=== PATIENT | male | born 1960 | race Caucasian/White ===

== ENCOUNTER 2022-03-13 04:18 | Emergency (ER) | payer BC, SELFPAY ==
--- NOTE | 2022-03-13 04:23 | ECG_ITS ---
APPROVED REPORT Exam: Resting ECG HR:51 bpm ECG Measurements Heart Rate 51 AXES MD 170 P 14 QRSd 80 QRS 78 QT 434 T 73 QTc 411 Conclusion SINUS BRADYCARDIA BORDERLINE ECG UNCONFIRMED REPORT Electronically signed by : Jose De Jesus Alvarado MD 03/14/2022 18:42:50
[2022-03-13 04:24] VITALS: BMI 29.1
[2022-03-13 04:27] VITALS: BP 172/93; PULSE 65; RESP 16; TEMP 36.6; O2SAT 99; BMI 29.1
--- NOTE | 2022-03-13 04:27 | XR_ITS ---
PROCEDURE INFORMATION: Exam: XR Chest Exam date and time: 03/13/2022 4:27 AM Age: 61 years old Clinical indication: Sternal or substernal pain; Additional info: Chest pain TECHNIQUE: Imaging protocol: XR of the chest. Views: 2 views. COMPARISON: No relevant prior studies available. FINDINGS: Lungs: Unremarkable. No consolidation. Pleural spaces: Unremarkable. No pleural effusion. No pneumothorax. Heart/Mediastinum: Unremarkable. No cardiomegaly. Bones/joints: Unremarkable. IMPRESSION: No acute findings.
[2022-03-13 04:30] VITALS: BP 156/85; PULSE 58; O2SAT 98
[2022-03-13 04:44] LABS: Basophils # 0.2 K/mm3 (0-0.2); Basophils % 1.6 % (0.1-2.0); Eosinophils # 0.1 K/mm3 (0.0-0.4); Hematocrit 47.7 % (42.0-52.0); Hemoglobin 16.6 g/dL (14.1-18.0); Lymphocytes # 1.8 K/mm3 (0.7-4.5); Lymphocytes % 13.8 % (10-50); Mean Corpuscular HGB Conc 34.7 g/dL (31.8-35.4); Mean Corpuscular Volume 86.4 fl (80-94); Monocytes # 0.5 K/mm3 (0.1-1.0); Monocytes % 4.1 % (1.7-9.3); Neutrophils # 10.2 K/mm3 (1.8-7.8); Neutrophils % 79.5 % (37.0-80.0); Platelet Count 188 K/mm3 (142-424); Red Blood Count 5.51 M/mm3 (4.60-6.20); Red Cell Distribution Width 13.8 % (11.5-17.5); White Blood Count 12.8 K/mm3 (4.8-10.8)
[2022-03-13 04:55] LABS: Alanine Aminotransferase 78 U/L (12-78); Albumin Level 4.4 g/dl (3.5-5.0); Albumin/Globulin Ratio 1.4 (1.1-1.8); Alkaline Phosphatase 113 U/L (38-126); Amylase 77 U/L (30-110); Anion Gap 12.9 mEq/L (5-15); Aspartate Amino Transferase 51 U/L (17-59); Bilirubin,Total 0.4 mg/dl (0.2-1.3); Blood Urea Nitrogen 11 mg/dl (9-20); Carbon Dioxide 26 mmol/L (22.0-30.0); Chloride 100 mmol/L (98-107); Creatinine Clearance Estimated 107 mL/min (50-200); Estimated Glomerular Filt Rate 98 ml/min (>60); GFR (African American) 119 ML/MIN (>60); Globulin 3.2 g/dL (1.3-3.2); Glucose 138 mg/dl (74-100); Lipase 55 U/L (23-300); Potassium 3.9 mmoL/L (3.5-5.1); Sodium 135 mmol/L (136-145); Total Protein,Serum 7.6 g/dl (6.3-8.2)
[2022-03-13 05:00] VITALS: BP 136/76; PULSE 55; O2SAT 96
[2022-03-13 05:00] LABS: C-Reactive Protein 7.3 mg/L (0-4)
[2022-03-13 05:08] LABS: Erythrocyte Sedimentation Rate 13 mm/hr (0-20)
[2022-03-13 05:13] LABS: Troponin I < 0.01 ng/ml (0.00-0.034)
[2022-03-13 05:14] LABS: Procalcitonin 0.076 ng/mL (0.0-2.0)
[2022-03-13 05:15] LABS: T4 (Thyroxine) 14.8 ug/dl (5.53-11.0)
[2022-03-13 05:28] LABS: Thyroid Stimulating Hormone 1.84 uIU/mL (0.465-4.68)
[2022-03-13 05:30] VITALS: BP 146/89; PULSE 51; O2SAT 97
--- NOTE | 2022-03-13 05:52 | CT_ITS ---
PROCEDURE INFORMATION: Exam: CT Abdomen And Pelvis Without Contrast Exam date and time: 03/13/2022 5:54 AM Age: 61 years old Clinical indication: Abdominal pain; Epigastric; Prior surgery; Surgery date: 6+ months; Surgery type: Appendix; Additional info: Mid epigastric pain TECHNIQUE: Imaging protocol: Computed tomography of the abdomen and pelvis without contrast. Radiation optimization: All CT scans at this facility use at least one of these dose optimization techniques: automated exposure control; mA and/or kV adjustment per patient size (includes targeted exams where dose is matched to clinical indication); or iterative reconstruction. COMPARISON: CR XR CHEST 2V 03/13/2022 4:27 AM FINDINGS: Liver: Normal. No mass. Gallbladder and bile ducts: Normal. No calcified stones. No ductal dilation. Pancreas: Normal. No ductal dilation. Spleen: Multiple benign-appearing splenic granulomas are present. Adrenal glands: Normal. No mass. Kidneys and ureters: No evidence of nephrolithiasis urolithiasis or obstruction is present. Stomach and bowel: Unremarkable. No obstruction. No mucosal thickening. Appendix: The patient is status post appendectomy. Intraperitoneal space: Unremarkable. No free air. No significant fluid collection. Vasculature: Unremarkable. No abdominal aortic aneurysm. Lymph nodes: Unremarkable. No enlarged lymph nodes. Urinary bladder: Unremarkable as visualized. Reproductive: Unremarkable as visualized. Bones/joints: Unremarkable. No acute fracture. Soft tissues: Unremarkable. IMPRESSION: No acute process or mass to explain the patient's abdominal pain.
[2022-03-13 07:01] VITALS: BP 122/71; PULSE 61; O2SAT 97
--- NOTE | 2022-03-13 07:11 | PC.NURSE ---
pt family member naty gave us her number to call to contact her when pt is released
--- NOTE | 2022-03-13 07:14 | PC.NURSE ---
maribell ahmadi at at this time checking on pt.
--- NOTE | 2022-03-13 07:14 | HMH.EDNVD ---
ED Disposition Clinical Impression: Gastritis Qualifiers: Gastritis type: unspecified gastritis Chronicity: acute Gastritis bleeding: without bleeding Qualified Code(s): K29.00 - Acute gastritis without bleeding Disposition: Home, Self-Care Condition on Discharge: Good Instructions: DI for Acute Abdominal Pain Additional Instructions: see pcp for follow up Prescriptions: Pantoprazole Sodium [Protonix 40mg tablet] 40 mg PO HS #30 tab Transmission Status: Pending to [id number] Referrals: Provider,Referral, [Primary Care Provider] - - Critical Care Critical Care Time: No Attestation: On 03/13/22, the high probability of a clinically significant, sudden or life threatening deterioration of the following system(s) required my full and direct attention, intervention and personal management. The time I documented below is in addition to time spent performing reported procedures but includes the following listed in this critical care notation. Medical Decision Making - Medical Records Medical records reviewed: Yes: I reviewed the patient's medical records. - Elver Inquiry Pt receiving controlled substance: No Vital Signs: 03/13/22 04:27 03/13/22 04:30 03/13/22 05:00 Temperature 97.8 F Temperature Source Oral Pulse Rate 58 L 55 L Pulse Rate [Right Brachial] 65 Respiratory Rate 16 Blood Pressure 156/85 H 136/76 Blood Pressure [Right Arm] 172/93 H Blood Pressure Mean Blood Pressure Mean [Right Arm] 119 Blood Pressure Source [Right Arm] Automatic Cuff Blood Pressure Position [Right Arm] Sitting 02 Sat by Pulse Oximetry 99 98 96 Oxygen Delivery Method Room Air Room Air Room Air 03/13/22 05:30 03/13/22 07:01 Temperature Temperature Source Pulse Rate 51 L 61 Pulse Rate [Right Brachial] Respiratory Rate Blood Pressure 146/89 H 122/71 Blood Pressure [Right Arm] Blood Pressure Mean 84 Blood Pressure Mean [Right Arm] Blood Pressure Source [Right Arm] Blood Pressure Position [Right Arm] 02 Sat by Pulse Oximetry 97 97 Oxygen Delivery Method Room Air - Lab Data Lab results reviewed: Yes: I reviewed the patient's lab results. Lab Results 03/13/22 04:30: WBC 12.8 H, RBC 5.51, Hgb 16.6, Hct 47.7, MCV 86.4, MCH 30.0, MCHC 34.7, RDW 13.8, Plt Count 188, MPV 9.0, Neut % (Auto) 79.5, Lymph % (Auto) 13.8, [place] % (Auto) 4.1, Eos % (Auto) 1.0, Baso % (Auto) 1.6, Neut # (Auto) 10.2 H, Lymph # (Auto) 1.8, [place] # (Auto) 0.5, Eos # (Auto) 0.1, Baso # (Auto) 0.2 03/13/22 04:30: Sodium 135 L, Potassium 3.9, Chloride 100, Carbon Dioxide 26, Anion Gap 12.9, BUN 11, Creatinine 0.80, Estimated Creat Clear 107, Estimated GFR 98, Est GFR ( Amer) 119, Glucose 138 H, Calcium 10.0, Total Bilirubin 0.4, AST 51, ALT 78, Alkaline Phosphatase 113, Troponin I < 0.01, C-Reactive Protein 7.3 H, Total Protein 7.6, Albumin 4.4, Globulin 3.2, Albumin/Globulin Ratio 1.4, Amylase 77, TSH 1.84, Thyroxine (T4) 14.8 H 03/13/22 04:30: ESR 13 03/13/22 04:30: Lipase 55, Procalcitonin 0.076 03/13/22 07:21: Troponin I < 0.01 Result diagrams: 03/13/22 04:30 03/13/22 04:30 Orders (Tests/Meds): ED MEDICATIONS Generic Name Dose Route Start Last Admin Trade Name Freq PRN Reason Stop Dose Admin Sodium Chloride 8 ml 03/13/22 04:48 Sodium Chloride 0.9% 10ml Vial IV 04/12/22 04:47 NEEDED PRN dilute pepcid Discontinued Medications Generic Name Dose Route Start Last Admin Trade Name Freq PRN Reason Stop Dose Admin Famotidine 20 mg 03/13/22 04:48 03/13/22 04:54 Famotidine 20mg/2ml Vial IV 03/13/22 04:49 20 mg ONCE ONE Administration Sodium Chloride 1,000 mls @ 999 mls/hr 03/13/22 04:30 03/13/22 04:54 Sod Chlor 0.9% 1000ml Bag IV 03/13/22 05:30 999 mls/hr .Q1H1M ERIK Administration Metoclopramide HCl 10 mg 03/13/22 04:49 03/13/22 04:55 Metoclopramide Hcl 10mg/2ml Vial IVP 03/13/22 04:50 10 mg ONCE ONE Administration Ondansetron H
--- NOTE | 2022-03-13 07:19 | PC.NURSE ---
Lab at drawing blood
[2022-03-13 08:00] LABS: Troponin I < 0.01 ng/ml (0.00-0.034)
[2022-03-13 08:14] VITALS: BP 122/71; PULSE 61; RESP 16; TEMP 36.6; O2SAT 97
== END 2022-03-13 08:16 | disposition home or self-care (01) ==
PROVIDERS: Emergency Provider Emergency Medicine
DX: K29.00 Acute gastritis without bleeding (principal); F12.90 Cannabis use, unspecified, uncomplicated; Z72.0 Tobacco use; Z88.0 Allergy status to penicillin
CPT/HCPCS: 36415; 71046; 74176; 80053; 82150; 83690; 84145; 84436; 84443; 84484; 85025; 85651; 86140; 93005; 96365; 96375; 99285; J2405

== ENCOUNTER 2022-04-08 12:11 | Emergency (ER) | payer BC, SELFPAY ==
--- NOTE | 2022-04-08 12:18 | XR_ITS ---
PROCEDURE INFORMATION: Exam: XR Chest Exam date and time: 04/08/2022 12:46 PM Age: 61 years old Clinical indication: Shortness of breath; Additional info: SOB TECHNIQUE: Imaging protocol: Radiologic exam of the chest. Views: 2 views. COMPARISON: CR XR CHEST 2V 03/13/2022 4:27 AM FINDINGS: Lungs: Chronic calcified left apical pulmonary granuloma. On the lateral view, there is chronic mild pulmonary hyperinflation with slight flattening of diaphragms and increased AP diameter of the chest. No acute findings. No consolidation. Pleural spaces: No significant pleural effusion. No pneumothorax. Heart/Mediastinum: The cardiac silhouette is normal. Vasculature: Calcified plaque in the aortic arch. Bones/joints: There are spinal degenerative changes, with multilevel disc narrrowing and spondylosis. IMPRESSION: 1. No acute findings compared with 03/13/2022. 2. Non emergency and chronic findings as above.
[2022-04-08 12:32] VITALS: BP 131/86; PULSE 80; RESP 16; TEMP 36.9; O2SAT 95; BMI 29.1
--- NOTE | 2022-04-08 13:14 | HMH.EDUTC ---
[facility] [place] Disposition Clinical Impression: Bronchitis, Viral syndrome Sinusitis Qualifiers: Sinusitis location: unspecified location Chronicity: acute Recurrence: non-recurrent Qualified Code(s): J01.90 - Acute sinusitis, unspecified Disposition: Home, Self-Care Condition on Discharge: Good Instructions: Sinusitis, DI for Sinusitis, DI for Acute Bronchitis, DI for COVID-19 (Suspected or Confirmed ), Preventing the Spread of Coronavirus Discharge Instructions Additional Instructions: Drink plenty of fluids. Take tylenol or ibuprofen for pain or fever. Take the medications as directed. Follow up with your regular doctor. GO TO THE ER FOR ANY WORSENING SYMPTOMS Quarantine until you know the results of your covid-19 test. Notify your school or workplace of your results and follow their instructions regarding return to work/school. Don't start the oral steroids until tomorrow, since you had the shot here today. The cough medication (promethazine dm) will make you drowsy, so don't drive or operate heavy machinery after taking it. Prescriptions: Promethazine/Dextromethorphan [Promethazine-Dm Syrup] 5 ml PO Q6HP PRN #240 ml PRN Reason: Cough Transmission Status: Received by [id number] methylPREDNISolone [Medrol] 4 mg PO DIRECTED 6 Days #21 packet Transmission Status: Received by [facility] guaiFENesin [Mucinex 600mg tablet] 1 - 2 tab PO BIDP PRN #30 tab PRN Reason: Congestion Transmission Status: Received by [facility] Azithromycin [Z-Pranav 250mg Tab*] 250 mg PO UD DOSE PK #6 tab Transmission Status: Received by [facility] Referrals: Provider,Referral, [Primary Care Provider] - Forms: Work/School Release Time of Disposition: 13:37 Medical Decision Making - Medical Records Medical records reviewed: No: I reviewed the patient's medical records. - Elver Inquiry Pt receiving controlled substance: No Vital Signs: 04/08/22 12:32 04/08/22 13:55 Temperature 98.4 F 98.4 F Temperature Source Oral Pulse Rate 80 Pulse Rate [Left] 80 Respiratory Rate 16 16 Blood Pressure 131/86 Blood Pressure [Right Arm] 131/86 Blood Pressure Mean [Right Arm] 101 02 Sat by Pulse Oximetry 95 - Lab Data Lab Results 04/08/22 13:48: Chlamy pneumoniae PCR Not detected, Adenovirus (PCR) Not detected, B. pertussis DNA (PCR) Not detected, Coronavirus OC43 (PCR) Not detected, Coronavirus HKU1 (PCR) Not detected, Coronavirus 229E (PCR) Not detected, SARS-CoV-2 (PCR) Detected A, Coronavirus NL63 (PCR) Not detected, Human Metapneumovir PCR Not detected, Influenza A (H1) PCR Not detected, Influ A (H1N1/09) PCR Not detected, Influenza A (H3) PCR Not detected, Influenza Type A (PCR) Not detected, Influenza Type B (PCR) Not detected, M. pneumoniae (PCR) Not detected, Parainfluenza 1 (PCR) Not detected, Parainfluenza 2 (PCR) Not detected, Parainfluenza 3 (PCR) Not detected, Parainfluenza 4 (PCR) Not detected, RSV (PCR) Not detected, Entero/Rhino (PCR) Not detected Orders (Tests/Meds): ED MEDICATIONS Discontinued Medications Generic Name Dose Route Start Last Admin Trade Name Freq PRN Reason Stop Dose Admin Methylprednisolone Sodium Succinate 125 mg 04/08/22 13:29 04/08/22 13:42 Methylprednisolone Sod Succ 125mg Vial IM 04/08/22 13:30 125 mg ONCE ONE Administration [facility] [place] HPI - General Stated complaint: SOB, congestion Time Seen by Provider: 04/08/22 13:14 Description of Symptoms (Recalled from Triage Doc. by RN): patient comes in today with complaints of trouble sleeping and trouble breathing. symptoms began last sunday HEENT Symptoms (Recalled from RN notes): No Resp Symptoms (Recalled from RN notes): Yes Skin Symptoms (Recalled from RN notes): No MS Symptoms (Recalled from RN notes): No Functional Status (Recalled from RN notes): wnl - History of Present Illness Provider Complaint: HE states that for the past 3 days he has been having
[2022-04-08 13:55] VITALS: BP 131/86; PULSE 80; RESP 16; TEMP 36.9
[2022-04-08 13:56] LABS: Adenovirus,PCR Not Detected (NotDetected); Bordetella Pertussis Not Detected (NotDetected); Chlamydophila Pneumoniae, PCR Not Detected (NotDetected); Coronavirus 229E Not Detected (NotDetected); Coronavirus NL63 Not Detected (NotDetected); Coronavirus OC43 Not Detected (NotDetected); Coronovirus HKU1,PCR Not Detected (NotDetected); Human Metapneumovirus Not Detected (NotDetected); Influenza A, PCR Not Detected (NotDetected); Influenza AH1, 2009 Not Detected (NotDetected); Influenza AH1, PCR Not Detected (NotDetected); Influenza AH3,PCR Not Detected (NotDetected); Influenza B, PCR Not Detected (NotDetected); Mycoplasma Pneumoniae, PCR Not Detected (NotDetected); Parainfluenza 1, PCR Not Detected (NotDetected); Parainfluenza 2, PCR Not Detected (NotDetected); Parainfluenza 3, PCR Not Detected (NotDetected); Parainfluenza 4, PCR Not Detected (NotDetected); Respiratory Syncytial Virus Not Detected (NotDetected); Rhinovirus/Enterovirus Not Detected (NotDetected)
[2022-04-08 15:46] LABS: Coronavirus 19, PCR Detected (NotDetected)
== END 2022-04-08 13:56 | disposition home or self-care (01) ==
LOC: UTC 12:13
PROVIDERS: Emergency Provider Nurse Practitioner Family
DX: J40 Bronchitis, not specified as acute or chronic (principal); B34.9 Viral infection, unspecified; J01.90 Acute sinusitis, unspecified
CPT/HCPCS: 71046; 87581; 87632; 87798; 96372; 99212; C9803; G0463; U0003; U0005

== ENCOUNTER 2022-08-05 12:01 | Emergency (ER) | payer BC, SELFPAY ==
[2022-08-05 12:08] VITALS: BP 172/108; PULSE 84; RESP 18; TEMP 36.8; O2SAT 96; BMI 29.1
[2022-08-05 12:50] VITALS: BP 172/108; PULSE 84; RESP 18; TEMP 36.8; O2SAT 96; BMI 29.1
--- NOTE | 2022-08-05 13:23 | EXP.UTC ---
Discharge Plan Disposition Patient Disposition: Home, Self-Care Condition: Good Prescriptions Prescriptions: New clindamycin HCl 300 mg capsule 300 mg PO Q8H 10 Days Qty: 30 0RF ibuprofen [IBU] 800 mg tablet 800 mg PO TIDP PRN (Reason: Moderate Pain) Qty: 20 0RF No Action pantoprazole 40 MG tablet,delayed release (DR/EC) 40 mg PO HS Qty: 30 0RF promethazine-DM 120 ML syrup 5 ml PO Q6HP PRN (Reason: Cough) Qty: 240 0RF azithromycin 250 MG tablet 250 mg PO UD DOSE PK Qty: 6 0RF Rx Instructions: Take two (2) tablets today, then one (1) tablet days #2 thru #5 methylprednisolone 4 MG tablets,dose pack 4 mg PO DIRECTED 6 Days Qty: 21 0RF guaifenesin 600 MG tablet extended release 12hr 1 - 2 tab PO BIDP PRN (Reason: Congestion) Qty: 30 0RF Referrals Follow up/Referrals: Provider,Referral, MD [Primary Care Provider] - See instructions Activity Restrictions/Add. Instructions Additional Instructions/Restrictions: Use Dental balls as instructed Take antibiotics as prescribed Return if needed Follow up with Dentist as soon as possible Clinical Impressions Clinical Impression: Abscess, dental Instructions Patient Instructions: Tooth Abscess, DI for Tooth Abscess, Clindamycin Discharge ED Provider: Ada Selby [facility] General Stated complaint: mouth pain Mode of Arrival: Ambulatory Source of Information: Patient Limitations: No Limitations Time Seen by Provider: 08/05/22 13:23 Description of Symptoms (Recalled from Triage Doc. by RN): Pt c/o R sided upper dental pain for 2-3 days. HEENT Symptoms (Recalled from RN notes): Yes Resp Symptoms (Recalled from RN notes): No Skin Symptoms (Recalled from RN notes): No MS Symptoms (Recalled from RN notes): No Functional Status (Recalled from RN notes): WNL History of Present Illness Provider Complaint: Patient states that he has been having pain in his right upper and lower gumline with swelling States that he has had dental abscess there before and been trying to get into see the dentist but they have been busy and couldnt get him in Related Data Previous Rx's Medication Instructions Recorded pantoprazole 40 mg tablet,delayed 40 mg PO HS #30 tabs 03/13/22 release azithromycin 250 mg tablet 250 mg PO UD DOSE PK #6 tabs 04/08/22 guaifenesin 600 mg tablet, 1 - 2 tab PO BIDP PRN Congestion 04/08/22 extended release 12 hr #30 tabs methylprednisolone 4 mg tablets in 4 mg PO DIRECTED 6 days #21 04/08/22 a dose pack packets promethazine-DM 6.25 mg-15 mg/5 mL 5 ml PO Q6HP PRN Cough #240 mL 04/08/22 oral syrup clindamycin HCl 300 mg capsule 300 mg PO Q8H 10 days #30 caps 08/05/22 ibuprofen 800 mg tablet (IBU) 800 mg PO TIDP PRN Moderate Pain 08/05/22 #20 tabs Allergies Allergy/AdvReac Type Severity Reaction Status Date / Time Penicillins Allergy Verified 04/08/22 12:44 Worker's Comp Is this a Worker's Comp case?: No [facility] Medical History (Updated 08/05/22 @ 13:31 by Ada Selby APRN) COPD (chronic obstructive pulmonary disease) Surgical History (Updated 08/05/22 @ 13:03 by Nazanin Horan RN) History of appendectomy Social History (Updated 08/05/22 @ 13:04 by Nazanin Horan RN) Smoking Status: Unknown if ever smoked alcohol intake: never current occupational status: other Travel in the last 8 weeks: None ROS Obtained: Yes All systems reviewed & no additional complaints except as documented and Yes Systems reviewed as appropriate & no additional complaints except as documented Constitutional Constitutional: Reports system reviewed and no additional complaints, except as documented and Reports as per HPI ENT Ears, Nose, Mouth, and Throat: Reports system reviewed and no additional complaints, except as documented, Reports as per HPI and Reports other (multiple broken and decaying teeth with swelling) Physical Exam General General appearance: alert and in no apparent
[2022-08-05 13:32] VITALS: BP 172/108; PULSE 84; RESP 18; TEMP 36.8; O2SAT 96
== END 2022-08-05 13:41 | disposition home or self-care (01) ==
LOC: ER 12:08 → UTC 12:08
PROVIDERS: Emergency Provider Nurse Practitioner
DX: K04.7 Periapical abscess without sinus (principal)
CPT/HCPCS: 99212; G0463

== ENCOUNTER 2023-02-23 07:29 | Inpatient (IN) | payer BC, SELFPAY ==
[2023-02-23] VITALS (13 sets, daily range): BP systolic 123–177; BP diastolic 67–95; PULSE 65–83; RESP 16–20; TEMP 36.6–37.2; O2SAT 93–96; BMI 19.5; BMI 24.4
--- NOTE | 2023-02-23 08:19 | HMH.EDGENADL ---
Discharge Plan Disposition Patient Disposition: Admitted As Inpatient Prescriptions Prescriptions: No Action clindamycin HCl 300 mg capsule 300 mg PO Q8H 10 Days Qty: 30 0RF ibuprofen [IBU] 800 mg tablet 800 mg PO TIDP PRN (Reason: Moderate Pain) Qty: 20 0RF pantoprazole 40 MG tablet,delayed release (DR/EC) 40 mg PO HS Qty: 30 0RF promethazine-DM 120 ML syrup 5 ml PO Q6HP PRN (Reason: Cough) Qty: 240 0RF azithromycin 250 MG tablet 250 mg PO UD DOSE PK Qty: 6 0RF Rx Instructions: Take two (2) tablets today, then one (1) tablet days #2 thru #5 methylprednisolone 4 MG tablets,dose pack 4 mg PO DIRECTED 6 Days Qty: 21 0RF guaifenesin 600 MG tablet extended release 12hr 1 - 2 tab PO BIDP PRN (Reason: Congestion) Qty: 30 0RF Referrals Follow up/Referrals: Provider,Referral, MD [Primary Care Provider] - See instructions Clinical Impressions Clinical Impression: Cholecystitis Instructions Patient Instructions: DI for Diarrhea and Traveler's Diarrhea -- Adult, DI for Diarrhea and Traveler's Diarrhea -- Child, DI for Nausea -- Adult, DI for Nausea -- Child Discharge ED Provider: Elisabeth (ED)Raffi General Adult HPI General Chief complaint: Nausea/Vomiting/Diarrhea Stated complaint: Vomiting, abd pain Time Seen by Provider: 02/23/23 08:19 History of Present Illness HPI narrative: Patient is a 62-year-old man presenting with nausea vomiting and diffuse abdominal pain. This has been going on for 3 days was initially associate with some mild diarrhea but has had no significant bowel movement since that time. Denies any history of any abdominal surgeries. He does smoke marijuana chronically daily. Has a positive sick contact his boss has had similar symptoms. No chest pain or shortness of breath. No fevers or chills. Vomiting has been nonbloody nonbilious. He states he has no medical problems but also does not go to the doctor. Related Data Previous Rx's Medication Instructions Recorded pantoprazole 40 mg tablet,delayed 40 mg PO HS #30 tabs 03/13/22 release azithromycin 250 mg tablet 250 mg PO UD DOSE PK #6 tabs 04/08/22 guaifenesin 600 mg tablet, 1 - 2 tab PO BIDP PRN Congestion 04/08/22 extended release 12 hr #30 tabs methylprednisolone 4 mg tablets in 4 mg PO DIRECTED 6 days #21 04/08/22 a dose pack packets promethazine-DM 6.25 mg-15 mg/5 mL 5 ml PO Q6HP PRN Cough #240 mL 04/08/22 oral syrup clindamycin HCl 300 mg capsule 300 mg PO Q8H 10 days #30 caps 08/05/22 ibuprofen 800 mg tablet (IBU) 800 mg PO TIDP PRN Moderate Pain 08/05/22 #20 tabs Allergies Allergy/AdvReac Type Severity Reaction Status Date / Time Penicillins Allergy Verified 04/08/22 12:44 [facility] Disclaimer: The information contained in this section may have been updated after the patient was seen, as this information can be updated by other users. Medical History (Updated 02/23/23 @ 11:42 by Vinicius Amaya MD) COPD (chronic obstructive pulmonary disease) Surgical History (Updated 08/05/22 @ 13:03 by Nazanin Horan RN) History of appendectomy Social History (Updated 08/05/22 @ 13:33 by Ada Selby APRN) Smoking Status: Never smoker alcohol intake: never current occupational status: other Travel in the last 8 weeks: None ROS Obtained: Yes All systems reviewed & no additional complaints except as documented Physical Exam General General appearance: alert and in no apparent distress Respiratory Respiratory exam: Present normal lung sounds bilaterally Cardiovascular Cardiovascular exam: Present regular rate; Absent tachycardia Abdominal Exam Abdominal exam: Present soft and tenderness (Tenderness palpation throughout his abdomen maximally epigastric area) Neurological Exam Neurological exam: Present alert and oriented X3 Medical Decision Making Elver Inquiry Pt receiving controlled substance: No Vital Signs: 02/23/23 08:00 02/23/23
--- NOTE | 2023-02-23 08:22 | CT_ITS ---
FINAL REPORT CLINICAL HISTORY: diffuse abd pain, n/v, hx of appendectomy COMPARISON: 03/13/2022 FINDINGS: CT OF THE ABDOMEN AND PELVIS WITH CONTRAST Axial CT images of the abdomen and pelvis were obtained after the administration of oral and iv contrast. Coronal reformatted images were also obtained and reviewed.This study was performed with techniques to keep radiation doses as low as reasonably achievable (ALARA). Individualized dose reduction techniques using automated exposure control or adjustment of mA and/or kV according to the patient's size were employed. Abdomen: Mild scarring is seen in the lung bases. There is wall thickening of the distal esophagus favored to be inflammatory. This appears similar to the prior exam. The liver has an unremarkable appearance, without evidence of mass the gallbladder is partially collapsed with wall thickening. There is mild biliary ductal dilatation. The spleen is unremarkable. No adrenal mass is present. 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 No abnormal fluid collection is seen. There is no evidence of pancreatitis The kidneys are normal, without evidence of mass or hydronephrosis. The aorta is normal in caliber. There are multiple borderline sized retroperitoneal nodes favored to be reactive. Multiple fluid-filled bowel loops may represent an ileus. Pelvis: The appendix is not well-visualized. The urinary bladder is unremarkable. There is no evidence of mass or adenopathy. There is no evidence of bowel obstruction. IMPRESSION: Findings consistent with acute pancreatitis. Wall thickening of the distal esophagus. Upper endoscopy is recommended. Mild biliary ductal dilatation of uncertain etiology. MRCP may be helpful. Reviewed, Interpreted and Dictated by Aris Bond III, MD Transcribed by Kathy Hayes Authenticated and [facility]
[2023-02-23 08:30] LABS: Basophils # 0.1 K/mm3 (0-0.2); Basophils % 0.3 % (0.1-2.0); Eosinophils # 0.3 K/mm3 (0.0-0.4); Eosinophils % 1.3 % (0.1-12.0); Hematocrit 49.7 % (42.0-52.0); Hemoglobin 16.5 g/dL (14.1-18.0); Lymphocytes # 1.7 K/mm3 (0.7-4.5); Lymphocytes % 8.4 % (10-50); Mean Corpuscular HGB Conc 33.3 g/dL (31.8-35.4); Mean Corpuscular Hemoglobin 29.4 pg (27.0-31.2); Mean Corpuscular Volume 88.2 fl (80-94); Mean Platelet Volume 9.9 fl (7.4-10.4); Monocytes # 0.9 K/mm3 (0.1-1.0); Monocytes % 4.5 % (1.7-9.3); Neutrophils # 17.1 K/mm3 (1.8-7.8); Neutrophils % 85.6 % (37.0-80.0); Platelet Count 200 K/mm3 (142-424); Red Blood Count 5.64 M/mm3 (4.60-6.20); Red Cell Distribution Width 14.3 % (11.5-17.5)
[2023-02-23 08:31] LABS: Chloride 91 mmol/L (98-107); MANUAL DIFFERENTIAL MANUAL DIFFERENTIAL (MANUAL DIFF); Potassium 3.6 mmoL/L (3.5-5.1); Sodium 133 mmol/L (136-145)
[2023-02-23 08:33] LABS: Blood Urea Nitrogen 15 mg/dl (9-20); Creatinine Clearance Estimated 88 mL/min (50-200); Estimated Glomerular Filt Rate 114 ml/min (>60); GFR (African American) 138 ML/MIN (>60)
[2023-02-23 08:34] LABS: Alanine Aminotransferase 131 U/L (12-78); Albumin Level 4.4 g/dl (3.5-5.0); Albumin/Globulin Ratio 1.2 (1.1-1.8); Alkaline Phosphatase 225 U/L (38-126); Anion Gap 19.6 mEq/L (5-15); Aspartate Amino Transferase 50 U/L (17-59); Bilirubin,Total 1.8 mg/dl (0.2-1.3); Calcium 9.5 mg/dl (8.4-10.2); Carbon Dioxide 26 mmol/L (22.0-30.0); Globulin 3.8 g/dL (1.3-3.2); Glucose 130 mg/dl (74-100); Lipase 258 U/L (23-300); Total Protein,Serum 8.2 g/dl (6.3-8.2)
--- NOTE | 2023-02-23 08:35 | PC.NURSE ---
Rounded on patient; call funk within reach
--- NOTE | 2023-02-23 08:42 | US_ITS ---
FINAL REPORT CLINICAL HISTORY: RUQ abd pain abnormal LFTS FINDINGS: RIGHT UPPER QUADRANT ULTRASOUND Sonographic images of the right upper quadrant were obtained. The pancreas is obscured. There is mild fatty infiltration of the liver. There is a stone filled collapsed gallbladder. There is gallbladder wall thickening measuring 5 mm, cholecystitis is not excluded. The common duct measures 5 mm. Limited images of the right kidney are normal. IMPRESSION: Stones in the gallbladder with gallbladder wall thickening, cholecystitis is not excluded. Mild fatty liver. Reviewed, Interpreted and Dictated by Aris Bond III, MD Transcribed by Perri Nieto Authenticated and [facility]
[2023-02-23 08:47] LABS: Eosinophils % 2 % (0-3); Lymphocytes % 9 % (10-50); Monocytes % 7 % (2-9); Neutrophils % 82 % (42-76); Total Cells Counted 100
[2023-02-23 08:55] LABS: Platelet Estimate Normal; RBC Morphology Normal
--- NOTE | 2023-02-23 09:00 | PC.NURSE ---
From CT; pt ambulatory to restroom without complications
[2023-02-23 09:11] LABS: Microscopic, Urine URINE MICROSCOPIC (MICROSCOPIC)
--- NOTE | 2023-02-23 09:11 | PC.NURSE ---
Rounded on patient; offered a warm blanket, a pillow and turned on the tv for the patient. Informed patient of plan of care and the reason we are keeping patient NPO. Call funk within reach
[2023-02-23 09:17] LABS: Appearance,Urine SL CLOUDY (Clear); Blood, Urine TRACE-I (Negative); Color,Urine YELLOW (Yellow); Glucose,Urine (UA) Negative (Negative); Ketones,Urine 1+ (Negative); Leukocyte Esterase,Urine Negative (Negative); Nitrate,Urine Negative (Negative); Protein,Urine 2+ (Negative); Specific Gravity, Urine 1.025 (1.005-1.030)
--- NOTE | 2023-02-23 09:27 | PC.NURSE ---
Patient going to US
[2023-02-23 09:47] LABS: Bilirubin,Urine Negative (Negative)
[2023-02-23 09:50] LABS: Bacteria,Urine Trace /lpf; RBC,Urine Occasional #/hpf (0-3)
[2023-02-23 09:51] LABS: Mucus,Urine Trace /lpf
--- NOTE | 2023-02-23 09:54 | PC.NURSE ---
Patient back from
--- NOTE | 2023-02-23 10:11 | PC.NURSE ---
Rounded on patient; pt lying on ED stretcher with call light within reach. no needs at this time, he is aware that we are waiting on test results at this time
--- NOTE | 2023-02-23 11:11 | PC.NURSE ---
pt ambulatory to restroom without complications
--- NOTE | 2023-02-23 11:19 | PC.NURSE ---
pt hooked back up to monitor after using restroom; no complications. call funk within reach
--- NOTE | 2023-02-23 11:26 | PC.NURSE ---
paged Dr. Razo for consult
--- NOTE | 2023-02-23 11:35 | PC.NURSE ---
Addendum entered by Bushra Yancey, MARCUS 02/23/23 11:36: Verbal order from MD for 4 mg of Morphine IV Original Note: MD notified of patients report pain
--- NOTE | 2023-02-23 11:37 | PC.NURSE ---
Dr Amaya speaking with Dr Razo
--- NOTE | 2023-02-23 11:44 | PC.NURSE ---
covid swab sent to lab
[2023-02-23 11:47] LABS: Coronavirus 19, PCR Not Detected (NotDetected); Influenza A, PCR Not Detected (NotDetected); Influenza B, PCR Not Detected (NotDetected)
--- NOTE | 2023-02-23 11:48 | EXP.SURG.CON ---
History of Present Illness *Admission Date: 02/23/23 *Reason for visit:: Abdominal pain *History of present illness: Patient is a 62-year-old male who presented to the emergency department this morning with several day history of nausea, vomiting, abdominal pain. This began with some mild diarrhea but then transitioned to nausea, vomiting, diffuse abdominal pain. Evaluation in the emergency department revealed a leukocytosis of 20,000. He underwent CT scan which revealed findings suggestive of acute pancreatitis. There is also some wall thickening of the distal esophagus and some mild biliary ductal dilatation. Additional laboratory assessment showed a slightly elevated bilirubin of 1.8, ALT of 131, alkaline phosphatase 225. Lipase normal. He therefore underwent right upper quadrant ultrasound which reveals a stone filled contracted gallbladder with some gallbladder wall thickening and mild fatty liver. Common bile duct is normal at 5 mm. It was felt that this was likely acute cholecystitis and surgery was contacted for discussion. Patient states that he does not go to the doctor unless there is an issue. Has no regular physician. He regularly smokes marijuana. He states that previously he drink alcohol heavily but minimally in the last couple of years. Apparently he has a history of hepatitis C diagnosed 10 to 15 years ago, and treated. [facility] Disclaimer: The information contained in this section may have been updated after the patient was seen, as this information can be updated by other users. Medical History (Updated 02/23/23 @ 11:42 by Vinicius Amaya MD) COPD (chronic obstructive pulmonary disease) Surgical History (Updated 08/05/22 @ 13:03 by Nazanin Horan RN) History of appendectomy Social History (Updated 08/05/22 @ 13:33 by Ada Selby APRN) Smoking Status: Never smoker alcohol intake: never current occupational status: other Travel in the last 8 weeks: None Meds Home Medications and Allergies Home Medications Medication Instructions Recorded Confirmed Type pantoprazole 40 mg tablet,delayed 40 mg PO HS #30 tabs 03/13/22 Rx release azithromycin 250 mg tablet 250 mg PO UD DOSE PK #6 tabs 04/08/22 Rx guaifenesin 600 mg tablet, 1 - 2 tab PO BIDP PRN Congestion 04/08/22 Rx extended release 12 hr #30 tabs methylprednisolone 4 mg tablets in 4 mg PO DIRECTED 6 days #21 04/08/22 Rx a dose pack packets promethazine-DM 6.25 mg-15 mg/5 mL 5 ml PO Q6HP PRN Cough #240 mL 04/08/22 Rx oral syrup clindamycin HCl 300 mg capsule 300 mg PO Q8H 10 days #30 caps 08/05/22 Rx ibuprofen 800 mg tablet (IBU) 800 mg PO TIDP PRN Moderate Pain 08/05/22 Rx #20 tabs New Prescriptions to Start Prescriptions: Allergies Allergy/AdvReac Type Severity Reaction Status Date / Time Penicillins Allergy Verified 04/08/22 12:44 Exam (Inpt) Vital signs and Labs for Last 24 Hours: Temp Pulse Resp BP Pulse Ox 97.8 F 67 18 160/74 H 96 02/23/23 07:30 02/23/23 11:30 02/23/23 11:30 02/23/23 11:30 02/23/23 11:30 Laboratory Results - last 24 hr 02/23/23 07:42: WBC 20.0 H, RBC 5.64, Hgb 16.5, Hct 49.7, MCV 88.2, MCH 29.4, MCHC 33.3, RDW 14.3, Plt Count 200, MPV 9.9, Neut % (Auto) 85.6 H, Lymph % (Auto) 8.4 L, [place] % (Auto) 4.5, Eos % (Auto) 1.3, Baso % (Auto) 0.3, Neut # (Auto) 17.1 H, Lymph # (Auto) 1.7, [place] # (Auto) 0.9, Eos # (Auto) 0.3, Baso # (Auto) 0.1, Total Counted 100, Neutrophils % (Manual) 82 H, Lymphocytes % (Manual) 9 L, Monocytes % (Manual) 7, Eosinophils % (Manual) 2, Platelet Estimate Normal, RBC Morphology Normal 02/23/23 07:42: Sodium 133 L, Potassium 3.6, Chloride 91 L, Carbon Dioxide 26, Anion Gap 19.6 H, BUN 15, Creatinine 0.70, Estimated Creat Clear 88, Estimated GFR 114, Est GFR ( Amer) 138, Glucose 130 H, Calcium 9.5, Total Bilirubin 1.8 H, AST 50, ALT 131 H, Alkaline Phosphatase 225 H, Total Protein 8.2, Albumin 4.4, Globulin 3.8 H, Albumin/[place]
--- NOTE | 2023-02-23 11:50 | PC.NURSE ---
Updated patient on plan of care no further questions @ this time. Call funk within reach of patient
--- NOTE | 2023-02-23 11:58 | PC.NURSE ---
General Surgeon @ [facility]
--- NOTE | 2023-02-23 12:20 | PC.NURSE ---
Dr Amaya speaking with Dr Duran
--- NOTE | 2023-02-23 12:27 | PC.NURSE ---
Care management called for admission
[2023-02-23 12:28] LABS: Activated Partial Thrombo Time 28.1 seconds (22.8-30.6); INR 0.96 (0.9-1.1); Prothrombin Time 10.4 seconds (10.1-12.5)
--- NOTE | 2023-02-23 13:40 | PC.NURSE ---
pt to med surg per wheelchair
--- NOTE | 2023-02-23 17:18 | EXP.HP ---
History of Present Illness *Admission Date: 02/23/23 *Reason for visit:: abdominal pain, N/V/D *History of present illness: Mr. Aly is a 62-year-old male who presented to the ER this morning with several days of nausea, vomiting, diarrhea and abdominal pain. States he began having some mild diarrhea 2 to 3 days ago that transition to nausea and vomiting. He denies any chest pain, shortness of breath, confusion, syncope. No blood in vomit or stool. On initial work-up in the ER, found to have a marked leukocytosis of greater than 20,000. Underwent CT of his abdomen which revealed findings suggestive of pancreatitis versus duodenitis versus cholecystitis. Right upper quadrant ultrasound was obtained showing gallstones and contraction of the gallbladder. Common bile duct was normal in caliber however. Labs concerning for elevation of bilirubin and ALT. Lipase normal at this time. Surgery was consulted, recommended admission for observation and serial exams. Medicine consulted for admission. After arriving to the floor, patient still having some upper abdominal pain. Reproducible on exam. No nausea or vomiting at this time. Stable on room air. Afebrile. [facility] Disclaimer: The information contained in this section may have been updated after the patient was seen, as this information can be updated by other users. Medical History (Updated 02/23/23 @ 17:50 by Lucas Duran MD) COPD (chronic obstructive pulmonary disease) Surgical History (Updated 08/05/22 @ 13:03 by Nazanin Horan RN) History of appendectomy Social History (Updated 02/23/23 @ 14:03 by Jessica Farr RN) Smoking Status: Current some day smoker alcohol intake: never current occupational status: other Travel in the last 8 weeks: None Meds Home Medications and Allergies Home Medications Medication Instructions Recorded Confirmed Type No Known Home Medications 02/23/23 02/23/23 History New Prescriptions to Start Prescriptions: Allergies Allergy/AdvReac Type Severity Reaction Status Date / Time Penicillins Allergy Intermediate Hives Verified 02/23/23 12:46 Exam Data for Last 24 hours Vital signs and Labs for Last 24 Hours: Temp Pulse Resp BP Pulse Ox 98.8 F 82 18 145/73 H 96 02/23/23 16:00 02/23/23 16:00 02/23/23 16:00 02/23/23 16:00 02/23/23 16:00 Laboratory Results - last 24 hr 02/23/23 07:42: WBC 20.0 H, RBC 5.64, Hgb 16.5, Hct 49.7, MCV 88.2, MCH 29.4, MCHC 33.3, RDW 14.3, Plt Count 200, MPV 9.9, Neut % (Auto) 85.6 H, Lymph % (Auto) 8.4 L, [place] % (Auto) 4.5, Eos % (Auto) 1.3, Baso % (Auto) 0.3, Neut # (Auto) 17.1 H, Lymph # (Auto) 1.7, [place] # (Auto) 0.9, Eos # (Auto) 0.3, Baso # (Auto) 0.1, Total Counted 100, Neutrophils % (Manual) 82 H, Lymphocytes % (Manual) 9 L, Monocytes % (Manual) 7, Eosinophils % (Manual) 2, Platelet Estimate Normal, RBC Morphology Normal 02/23/23 07:42: Sodium 133 L, Potassium 3.6, Chloride 91 L, Carbon Dioxide 26, Anion Gap 19.6 H, BUN 15, Creatinine 0.70, Estimated Creat Clear 88, Estimated GFR 114, Est GFR ( Amer) 138, Glucose 130 H, Calcium 9.5, Total Bilirubin 1.8 H, AST 50, ALT 131 H, Alkaline Phosphatase 225 H, Total Protein 8.2, Albumin 4.4, Globulin 3.8 H, Albumin/Globulin Ratio 1.2, Lipase 258 02/23/23 07:42: PT 10.4, INR 0.96, APTT 28.1 02/23/23 09:05: Urine Color Yellow, Urine Appearance Sl cloudy, Urine pH 6.0, Ur Specific [place] 1.025, Urine Protein 2+, Urine Glucose (UA) Negative, Urine Ketones 1+, Urine Blood Trace-i, Urine Nitrate Negative, Urine Bilirubin Negative, Urine Urobilinogen 1.0, Ur Leukocyte Esterase Negative, Urine RBC Occasional, Urine WBC 5-10, Ur Squamous Epith Cells 3-5, Urine Bacteria Trace, Urine Mucus Trace 02/23/23 11:42: SARS-CoV-2 (PCR) Not detected, Influenza A Untype (PCR) Not detected, Influenza Type B (PCR) Not detected I & O for Last 24 hours: Intake & Output 02/20/23 02/21/23 02/22/23 02/23/23 23:59 23:59 23:59 23:59 Out
[2023-02-24] VITALS (16 sets, daily range): BP systolic 101–157; BP diastolic 57–95; PULSE 60–78; RESP 16–21; TEMP 36.4–37.4; O2SAT 92–99; BMI 28.7
[2023-02-24 07:04] LABS: Eosinophils # 0.2 K/mm3 (0.0-0.4); Eosinophils % 1.1 % (0.1-12.0); Hematocrit 42.5 % (42.0-52.0); Lymphocytes # 1.5 K/mm3 (0.7-4.5); Red Blood Count 4.86 M/mm3 (4.60-6.20)
[2023-02-24 07:09] LABS: Basophils # 0.1 K/mm3 (0-0.2); Basophils % 0.3 % (0.1-2.0); Lymphocytes % 8.7 % (10-50); Mean Corpuscular HGB Conc 32.9 g/dL (31.8-35.4); Mean Corpuscular Hemoglobin 28.7 pg (27.0-31.2); Mean Corpuscular Volume 87.3 fl (80-94); Mean Platelet Volume 10.1 fl (7.4-10.4); Monocytes % 5.7 % (1.7-9.3); Neutrophils # 14.2 K/mm3 (1.8-7.8); Neutrophils % 84.2 % (37.0-80.0); Platelet Count 177 K/mm3 (142-424); Red Cell Distribution Width 14.3 % (11.5-17.5); White Blood Count 16.9 K/mm3 (4.8-10.8)
[2023-02-24 07:11] LABS: MANUAL DIFFERENTIAL MANUAL DIFFERENTIAL (MANUAL DIFF)
[2023-02-24 07:12] LABS: Alanine Aminotransferase 72 U/L (12-78); Albumin Level 3.4 g/dl (3.5-5.0); Albumin/Globulin Ratio 1.1 (1.1-1.8); Alkaline Phosphatase 165 U/L (38-126); Anion Gap 15.7 mEq/L (5-15); Aspartate Amino Transferase 36 U/L (17-59); Bilirubin,Total 1.2 mg/dl (0.2-1.3); Blood Urea Nitrogen 14 mg/dl (9-20); Calcium 8.3 mg/dl (8.4-10.2); Carbon Dioxide 25 mmol/L (22.0-30.0); Chloride 95 mmol/L (98-107); Creatinine Clearance Estimated 104 mL/min (50-200); Estimated Glomerular Filt Rate 137 ml/min (>60); GFR (African American) 165 ML/MIN (>60); Glucose 89 mg/dl (74-100); Potassium 3.7 mmoL/L (3.5-5.1); Sodium 132 mmol/L (136-145); Total Protein,Serum 6.4 g/dl (6.3-8.2)
--- NOTE | 2023-02-24 07:23 | EXP.ACUTE.PN ---
Subjective *Date: 02/24/23 *Time: 10:56 Interval history: Pain some better this morning but still having right upper quadrant discomfort. No nausea or vomiting overnight. No diarrhea. Remained afebrile and hemodynamically stable. N.p.o. this morning pending surgery evaluation. Stable on room air. Medical Exam Vital signs and Labs for Last 24 Hours: Vital Signs Temp Pulse Pulse Resp BP BP Pulse Ox 02/24/23 07:20 98.4 F 72 18 129/79 94 L 02/24/23 04:00 99.4 F 75 17 157/82 H 94 L 02/23/23 20:00 98.9 F 79 16 123/72 93 L 02/23/23 16:00 98.8 F 82 18 145/73 H 96 02/23/23 14:02 97.8 F 72 18 131/78 02/23/23 12:30 72 18 131/78 94 L 02/23/23 12:14 71 149/76 H 95 02/23/23 11:30 67 18 160/74 H 96 02/23/23 11:01 65 18 157/77 H 96 02/23/23 10:55 73 18 140/82 95 02/23/23 10:00 68 18 177/95 H 96 02/23/23 09:02 79 151/91 H 96 02/23/23 08:30 76 20 156/95 H 96 02/23/23 07:30 97.8 F 83 18 123/67 95 02/23/23 08:00 68 153/85 H 94 L Intake and Output 02/23/23 02/23/23 02/24/23 15:59 23:59 07:59 Intake Total 240 / 390 977 / 977 Output Total 0 / 0 0 / 0 0 / 0 Balance 0 / 390 240 / 390 977 / 977 Intake: Intake, Oral Amount 240 / 240 Intake, Total IV Amount 977 / 977 Cefepime HCl 1 gm In 0.9 % 100 / 100 Sodium Chloride 50 ml @ 100 mls /hr IV Q8H ERIK Rx#:[id number] Lactated Ringers 1000ML 1,000 677 / 677 ml @ 50 mls/hr IV .Q20H ERIK Rx# :[id number] Metronidaz/Sod Chl 500 mg In 200 / 200 100 ml @ 100 mls/hr IV Q8H ERIK Rx#:[id number] Output: Output, Urine Amount 0 / 0 0 / 0 0 / 0 Other: Number of Unmeasured Voids 1 1 3 Weight 81.647 kg 96.275 kg Patient Weight 02/24/23 23:59 Weight 96.275 kg Laboratory Results - last 24 hr 02/23/23 07:42: WBC 20.0 H, RBC 5.64, Hgb 16.5, Hct 49.7, MCV 88.2, MCH 29.4, MCHC 33.3, RDW 14.3, Plt Count 200, MPV 9.9, Neut % (Auto) 85.6 H, Lymph % (Auto) 8.4 L, [place] % (Auto) 4.5, Eos % (Auto) 1.3, Baso % (Auto) 0.3, Neut # (Auto) 17.1 H, Lymph # (Auto) 1.7, [place] # (Auto) 0.9, Eos # (Auto) 0.3, Baso # (Auto) 0.1, Total Counted 100, Neutrophils % (Manual) 82 H, Lymphocytes % (Manual) 9 L, Monocytes % (Manual) 7, Eosinophils % (Manual) 2, Platelet Estimate Normal, RBC Morphology Normal 02/23/23 07:42: Sodium 133 L, Potassium 3.6, Chloride 91 L, Carbon Dioxide 26, Anion Gap 19.6 H, BUN 15, Creatinine 0.70, Estimated Creat Clear 88, Estimated GFR 114, Est GFR ( Amer) 138, Glucose 130 H, Calcium 9.5, Total Bilirubin 1.8 H, AST 50, ALT 131 H, Alkaline Phosphatase 225 H, Total Protein 8.2, Albumin 4.4, Globulin 3.8 H, Albumin/Globulin Ratio 1.2, Lipase 258 02/23/23 07:42: PT 10.4, INR 0.96, APTT 28.1 02/23/23 09:05: Urine Color Yellow, Urine Appearance Sl cloudy, Urine pH 6.0, Ur Specific [place] 1.025, Urine Protein 2+, Urine Glucose (UA) Negative, Urine Ketones 1+, Urine Blood Trace-i, Urine Nitrate Negative, Urine Bilirubin Negative, Urine Urobilinogen 1.0, Ur Leukocyte Esterase Negative, Urine RBC Occasional, Urine WBC 5-10, Ur Squamous Epith Cells 3-5, Urine Bacteria Trace, Urine Mucus Trace 02/23/23 11:42: SARS-CoV-2 (PCR) Not detected, Influenza A Untype (PCR) Not detected, Influenza Type B (PCR) Not detected 02/24/23 06:07: WBC 16.9 H, RBC 4.86, Hgb 14.0 L D, Hct 42.5, MCV 87.3, MCH 28.7, MCHC 32.9, RDW 14.3, Plt Count 177, MPV 10.1, Neut % (Auto) 84.2 H, Lymph % (Auto) 8.7 L, [place] % (Auto) 5.7, Eos % (Auto) 1.1, Baso % (Auto) 0.3, Neut # (Auto) 14.2 H, Lymph # (Auto) 1.5, [place] # (Auto) 1.0, Eos # (Auto) 0.2, Baso # (Auto) 0.1 02/24/23 06:07: Sodium 132 L, Potassium 3.7, Chloride 95 L, Carbon Dioxide 25, Anion Gap 15.7 H, BUN 14, Creatinine 0.60 L, Estimated Creat Clear 104, Estimated GFR 137, Est GFR ( Amer) 165, Glucose 89 D, Calcium 8.3 L, Magnesium 2.0, Total Bilirubin 1.2, AST 36 D, ALT 72 D, Alkaline Phosphatase 165 H,
[2023-02-24 08:01] LABS: Lymphocytes % 9 % (10-50); Monocytes % 4 % (2-9); Neutrophils % 87 % (42-76); Total Cells Counted 100
[2023-02-24 08:02] LABS: Platelet Estimate Normal; RBC Morphology Normal
--- NOTE | 2023-02-24 10:12 | EXP.SURG.PN ---
Subjective Narrative: Patient without any new complaints. He does have some abdominal discomfort. He states that the pain has improved. He localizes this to the mid upper abdomen and right lower quadrant. He does feel the urge to have a bowel movement but has not done so. He has passed gas. Exam Data for Last 24 hours Vital signs and Labs for Last 24 Hours: Temp Pulse Resp BP Pulse Ox 98.4 F 72 18 129/79 94 L 02/24/23 07:20 02/24/23 07:20 02/24/23 07:20 02/24/23 07:20 02/24/23 07:20 Laboratory Results - last 24 hr 02/23/23 07:42: PT 10.4, INR 0.96, APTT 28.1 02/23/23 11:42: SARS-CoV-2 (PCR) Not detected, Influenza A Untype (PCR) Not detected, Influenza Type B (PCR) Not detected 02/24/23 06:07: WBC 16.9 H, RBC 4.86, Hgb 14.0 L D, Hct 42.5, MCV 87.3, MCH 28.7, MCHC 32.9, RDW 14.3, Plt Count 177, MPV 10.1, Neut % (Auto) 84.2 H, Lymph % (Auto) 8.7 L, [place] % (Auto) 5.7, Eos % (Auto) 1.1, Baso % (Auto) 0.3, Neut # (Auto) 14.2 H, Lymph # (Auto) 1.5, [place] # (Auto) 1.0, Eos # (Auto) 0.2, Baso # (Auto) 0.1, Total Counted 100, Neutrophils % (Manual) 87 H, Lymphocytes % (Manual) 9 L, Monocytes % (Manual) 4, Platelet Estimate Normal, RBC Morphology Normal 02/24/23 06:07: Sodium 132 L, Potassium 3.7, Chloride 95 L, Carbon Dioxide 25, Anion Gap 15.7 H, BUN 14, Creatinine 0.60 L, Estimated Creat Clear 104, Estimated GFR 137, Est GFR ( Amer) 165, Glucose 89 D, Calcium 8.3 L, Magnesium 2.0, Total Bilirubin 1.2, AST 36 D, ALT 72 D, Alkaline Phosphatase 165 H, Total Protein 6.4, Albumin 3.4 L D, Globulin 3.0, Albumin/Globulin Ratio 1.1 I & O for Last 24 hours: Intake & Output 02/21/23 02/22/23 02/23/23 02/24/23 11:59 11:59 11:59 11:59 Intake Total 1216 / 1217 Output Total 0 / 0 Balance 1216 / 1216 Weight 180 lb 212 lb 4 oz *Routine Abdominal Exam Abdominal: Present soft Comments: Mild tenderness in mid upper abdomen Progress Note: A&P Assessment and plan (1) Cholecystitis: Status: Acute (2) Pancreatitis: Status: Acute (3) Gastritis: Status: Acute (4) Abdominal pain: Status: Acute Assessment and plan: Clinical scenario not completely straightforward. Does not seem to be classic acute cholecystitis. Possible pancreatitis or gastroduodenitis. Check pancreatic enzymes. Plan for EGD today for assessment of upper GI etiology. (5) COPD (chronic obstructive pulmonary disease): Status: Acute
[2023-02-24 10:15] LABS: Amylase 60 U/L (30-110); Lipase 235 U/L (23-300)
--- NOTE | 2023-02-24 11:11 | P.PCN_ITS ---
Procedure: Date: 02/24/23 Patient Date of :: 1960 Procedure Performed:: Esophagogastroduodenoscopy with biopsies Indications:: Mr. Aly is a 62-year-old male who presented to the ER yesterday morning with several days of nausea, vomiting, diarrhea and abdominal pain.? States he began having some mild diarrhea 2 to 3 days ago that transition to nausea and vomiting.? On initial work-up in the ER, found to have a leukocytosis of greater than 20,000.? Underwent CT of his abdomen which revealed findings suggestive of pancreatitis versus duodenitis versus cholecystitis.? Right upper quadrant ultrasound was obtained showing gallstones and contraction of the gallbladder.? Common bile duct was normal in caliber however.? Labs revealed bilirubin of 1.8 and slight elevation of ALT at 131 and alkaline phosphatase at 225.? Lipase normal..? Patient's clinical scenario not exactly straightforward for cholecystitis. Following morning he showed some improvement in his abdominal pain. Leukocytosis had somewhat improved to 16,000. Pancreatic enzymes normal. Liver function test normalized. He complained of mainly pain in the mid abdomen and right lower quadrant. Given the lack of clear etiology w ith symptoms atypical for cholecystitis clinically and on imaging with findings on CT scan suggestive of possible duodenitis plan was made for upper endoscopy. Performing Provider:: Aris Razo MD Referring Provider:: Zhao Duran Sedation:: MAC sedation Procedure:: Patient history was obtained and appropriate physical examination was performed. Patient's medications and allergies were reviewed. Informed consent was obtained after explaining the benefits, alternatives, and risks of the procedure including, but not limited to, bleeding, perforation, missed lesions, and adverse reaction to anesthesia medications. Patient was transported to endoscopy procedure room. Patient was connected to monitoring devices. Throughout the procedure the patient's blood pressure, pulse, and oxygen saturations were monitored continuously. Patient identification and planned procedure were verified by the staff. Endoscope was inserted via the oropharynx. Esophagus was cannulated. There were findings of some minor esophageal dysmotility and presbyesophagus. Gastroesophageal junction was encountered at 45 cm from the incisors. There was some possible focal Langley's esophagus at the gastroesophageal junction. Stomach was cannulated and insufflated. Retroflexion revealed very small hiatal hernia. There was some diffuse nonerosive moderate gastritis. Pylorus was traversed. Duodenum appeared unremarkable. Endoscope was withdrawn into the stomach. Gastric antral mucosal biopsy was obtained. Endoscope was withdrawn into the distal esophagus and a couple biopsies were obtained at the gastroesophageal junction. Stomach was desufflated and the endoscope was withdrawn. Findings:: Esophageal dysmotility Gastroesophageal junction at 45 cm Possible focal Langley's esophagus at the GE junction Moderate diffuse nonerosive gastropathy/gastritis Duodenum unremarkable Recommendations:: Still unclear as to the patient's symptoms. This could be possible enteritis given the clinical presentation with gallstones being incidental. Continue expectant management at this time. If improves may build to be discharged with outpatient follow-up for consideration of cholecystectomy in the future. Complications:: None immediate Estimated blood obtained (mL): 1
--- NOTE | 2023-02-24 11:13 | P.PN_ITS ---
[facility] Disclaimer: The information contained in this section may have been updated after the patient was seen, as this information can be updated by other users. Medical History (Updated 02/23/23 @ 17:50 by Lucas Duran MD) COPD (chronic obstructive pulmonary disease) Surgical History (Updated 08/05/22 @ 13:03 by Nazanin Horan RN) History of appendectomy Social History (Updated 02/23/23 @ 14:03 by Jessica Farr RN) Smoking Status: Current some day smoker alcohol intake: never substance use type: denies use current occupational status: other Travel in the last 8 weeks: None [facility] Anesthesia Checklist Structural Data Admitted From: Inpatient Planned Operative Procedure/s: egd Consent for Planned Operative Procedure(s) Verified: Yes Airway Assessment C-Spine Mobility Assessed: Yes TMJ Mobility Assessed: Yes Dentition: Edentulous Neurological Assessment Level of Consciousness: Awake, Alert and Appropriate Anesthesia Plan Anesthesia Risk discussed: Yes Anesthesia Plan: Verified ASA Class: III Anesthesia Type: MAC
--- NOTE | 2023-02-24 17:21 | PC.NURSE ---
Patient alert and oriented during shift. Able to eat lunch but then vomited shortly after. Zofran given and decision to keep pt overnight per md to monitor how pt tolerated food. VS stable. Some pain noted right side of abdomen but pt did not want pain medications. Stated pain was better than it was on admission and came periodically, not constant. No distention noted.
--- NOTE | 2023-02-24 18:00 | EXP.DC.SUM ---
General Admission date:: 02/23/23 Discharge date: 02/25/23 HPI HPI HPI: Mr. Aly is a 62-year-old male who presented to the ER this morning with several days of nausea, vomiting, diarrhea and abdominal pain. States he began having some mild diarrhea 2 to 3 days ago that transition to nausea and vomiting. He denies any chest pain, shortness of breath, confusion, syncope. No blood in vomit or stool. On initial work-up in the ER, found to have a marked leukocytosis of greater than 20,000. Underwent CT of his abdomen which revealed findings suggestive of pancreatitis versus duodenitis versus cholecystitis. Right upper quadrant ultrasound was obtained showing gallstones and contraction of the gallbladder. Common bile duct was normal in caliber however. Labs concerning for elevation of bilirubin and ALT. Lipase normal at this time. Surgery was consulted, recommended admission for observation and serial exams. Medicine consulted for admission. After arriving to the floor, patient still having some upper abdominal pain. Reproducible on exam. No nausea or vomiting at this time. Stable on room air. Afebrile. Hospital Course Hospital Course Hospital Course: 62-year-old male with abdominal pain.? ER work-up concerning for pancreatitis versus cholecystitis versus gastritis.?Medicine admitted for further inpatient management.? Surgery consulted, appreciate their recommendations.? Problems addressed as follows: Abdominal pain Cholecystitis Pancreatitis -2 to 3 days of nausea and vomiting, seems to be resolved at this time. On presentation, liver enzymes mildly elevated. Work-up including imaging of abdomen showed gallbladder with stones and contraction. Had positive right upper quadrant pain. No common bile duct dilatation however. No elevation in lipase however CT of abdomen showed concern for pancreatitis on imaging. Was taken for EGD with findings of Langley's esophagus and gastritis. Biopsies obtained. Started on PPI. Will treat with short course of antibiotics prophylactically for questionable gallbladder inflammation. Continue PPI daily. Plan for outpatient follow-up with surgery to discuss elective cholecystectomy. White cell count improved during admission. Stable to discharge home as he is tolerating oral intake and feeling improvement in abdominal symptoms. COPD -No active symptoms at this time, no need for breathing treatments during admission. Stable for discharge home, close follow-up with surgery. Medication sent to [facility]. Exam Data for Last 24 hours Vital signs and Labs for Last 24 Hours: Temp Pulse Resp BP Pulse Ox 98.4 F 67 20 138/74 92 L 05/20/23 15:00 02/24/23 15:00 02/24/23 15:00 02/24/23 15:00 02/24/23 15:00 Laboratory Results - last 24 hr 02/24/23 06:07: WBC 16.9 H, RBC 4.86, Hgb 14.0 L D, Hct 42.5, MCV 87.3, MCH 28.7, MCHC 32.9, RDW 14.3, Plt Count 177, MPV 10.1, Neut % (Auto) 84.2 H, Lymph % (Auto) 8.7 L, [place] % (Auto) 5.7, Eos % (Auto) 1.1, Baso % (Auto) 0.3, Neut # (Auto) 14.2 H, Lymph # (Auto) 1.5, [place] # (Auto) 1.0, Eos # (Auto) 0.2, Baso # (Auto) 0.1, Total Counted 100, Neutrophils % (Manual) 87 H, Lymphocytes % (Manual) 9 L, Monocytes % (Manual) 4, Platelet Estimate Normal, RBC Morphology Normal 02/24/23 06:07: Sodium 132 L, Potassium 3.7, Chloride 95 L, Carbon Dioxide 25, Anion Gap 15.7 H, BUN 14, Creatinine 0.60 L, Estimated Creat Clear 104, Estimated GFR 137, Est GFR ( Amer) 165, Glucose 89 D, Calcium 8.3 L, Magnesium 2.0, Total Bilirubin 1.2, AST 36 D, ALT 72 D, Alkaline Phosphatase 165 H, Total Protein 6.4, Albumin 3.4 L D, Globulin 3.0, Albumin/Globulin Ratio 1.1 02/24/23 06:07: Amylase 60, Lipase 235 I & O for Last 24 hours: Intake & Output 02/21/23 02/22/23 02/23/23 02/24/23 23:59 23:59 23:59 23:59 Intake Total 240 / 390 1578 / 1578 Output Total 0 / 0 0 / 0 Balance 240 / 390 1578 / 1578 Weight 81.647 kg 96.275 kg Constitutional Constitutional
[2023-02-25 04:00] VITALS: BP 123/58; PULSE 62; RESP 18; TEMP 37.2; O2SAT 95; BMI 29.8
[2023-02-25 06:47] LABS: Basophils % 0.2 % (0.1-2.0); Eosinophils # 0.2 K/mm3 (0.0-0.4); Eosinophils % 1.5 % (0.1-12.0); Hemoglobin 13.4 g/dL (14.1-18.0); Lymphocytes # 1.8 K/mm3 (0.7-4.5); Lymphocytes % 12.1 % (10-50); Mean Corpuscular HGB Conc 32.6 g/dL (31.8-35.4); Mean Corpuscular Hemoglobin 28.9 pg (27.0-31.2); Mean Corpuscular Volume 88.6 fl (80-94); Mean Platelet Volume 9.4 fl (7.4-10.4); Monocytes # 0.9 K/mm3 (0.1-1.0); Monocytes % 5.7 % (1.7-9.3); Neutrophils # 11.9 K/mm3 (1.8-7.8); Neutrophils % 80.4 % (37.0-80.0); Platelet Count 182 K/mm3 (142-424); Red Blood Count 4.63 M/mm3 (4.60-6.20); Red Cell Distribution Width 14.1 % (11.5-17.5); White Blood Count 14.9 K/mm3 (4.8-10.8)
[2023-02-25 06:57] LABS: Alanine Aminotransferase 52 U/L (12-78); Albumin Level 3.1 g/dl (3.5-5.0); Albumin/Globulin Ratio 1.1 (1.1-1.8); Alkaline Phosphatase 130 U/L (38-126); Anion Gap 14.7 mEq/L (5-15); Aspartate Amino Transferase 34 U/L (17-59); Blood Urea Nitrogen 14 mg/dl (9-20); Calcium 8.1 mg/dl (8.4-10.2); Carbon Dioxide 27 mmol/L (22.0-30.0); Chloride 95 mmol/L (98-107); Creatinine Clearance Estimated 108 mL/min (50-200); Estimated Glomerular Filt Rate 137 ml/min (>60); GFR (African American) 165 ML/MIN (>60); Globulin 2.8 g/dL (1.3-3.2); Glucose 95 mg/dl (74-100); Magnesium 1.9 mg/dl (1.6-2.3); Potassium 3.7 mmoL/L (3.5-5.1); Sodium 133 mmol/L (136-145); Total Protein,Serum 5.9 g/dl (6.3-8.2)
[2023-02-25 07:23] VITALS: BP 137/79; PULSE 83; RESP 17; TEMP 36.8; O2SAT 94
--- NOTE | 2023-02-25 09:20 | P.PN_ITS ---
Subjective Narrative: Patient states that he feels better. He states that he is almost 100%. He has tolerated solid diet. Exam Data for Last 24 hours Vital signs and Labs for Last 24 Hours: Temp Pulse Resp BP Pulse Ox 98.3 F 83 17 137/79 94 L 02/25/23 07:23 02/25/23 07:23 02/25/23 07:23 02/25/23 07:23 02/25/23 07:23 Laboratory Results - last 24 hr 02/24/23 06:07: Amylase 60, Lipase 235 02/25/23 06:13: WBC 14.9 H, RBC 4.63, Hgb 13.4 L, Hct 41.0 L, MCV 88.6, MCH 28.9 , MCHC 32.6, RDW 14.1, Plt Count 182, MPV 9.4, Neut % (Auto) 80.4 H, Lymph % (Auto) 12.1, [place] % (Auto) 5.7, Eos % (Auto) 1.5, Baso % (Auto) 0.2, Neut # (Auto) 11.9 H, Lymph # (Auto) 1.8, [place] # (Auto) 0.9, Eos # (Auto) 0.2, Baso # (Auto) 0.0 02/25/23 06:13: Sodium 133 L, Potassium 3.7, Chloride 95 L, Carbon Dioxide 27, Anion Gap 14.7, BUN 14, Creatinine 0.60 L, Estimated Creat Clear 108, Estimated GFR 137, Est GFR ( Amer) 165, Glucose 95, Calcium 8.1 L, Magnesium 1.9, Total Bilirubin 1.0, AST 34, ALT 52 D, Alkaline Phosphatase 130 H, Total Protein 5.9 L, Albumin 3.1 L, Globulin 2.8, Albumin/Globulin Ratio 1.1 I & O for Last 24 hours: Intake & Output 02/22/23 02/23/23 02/24/23 02/25/23 11:59 11:59 11:59 11:59 Intake Total 1216 Output Total 0 / 0 0 / 0 Balance 1216 Weight 180 lb 212 lb 4 oz 220 lb 4 oz *Routine Abdominal Exam Comments: Mild tenderness immediately above his umbilical area. Progress Note: A&P Assessment and plan (1) Cholecystitis: Status: Acute (2) Pancreatitis: Status: Acute (3) Gastritis: Status: Acute (4) Abdominal pain: Status: Acute Assessment and plan: White blood cell count showing further improvement. Clinical scenario not consistent with acute cholecystitis. Does have gallstones. Probable discharge today with early outpatient follow-up for consideration of cholecystectomy. He is to stay on a few more days of outpatient antibiotics. (5) COPD (chronic obstructive pulmonary disease): Status: Acute
--- NOTE | 2023-02-25 10:12 | PC.NURSE ---
called office and left message and asked to please call patient with follow up appointment with Dr. Razo
--- NOTE | 2023-02-26 14:28 | CARE MANAGER ---
Called and spoke with patient to discuss recent discharge. Patient stated that he is doing ok, he was able to pickup medications prescribed at discharge. He also stated that he has scheduled his f/u appt with Dr. Razo. No complaints/concerns voiced at time of discharge.
[2023-02-26 14:39] LABS: HBsAg Screen Negative (Negative); HCV Ab Reactive (Non Reactive); Hep A Ab, IGM Negative (Negative); Hep B Core Ab, IgM Negative (Negative)
[2023-02-27 13:34] LABS: HBsAg Screen Negative (Negative); HCV Ab Reactive (Non Reactive); Hep A Ab, IGM Negative (Negative); Hep B Core Ab, IgM Negative (Negative)
== END 2023-02-25 10:45 | disposition home or self-care (01) | DRG 439 ==
LOC: ER 11:42 → 2ND 14:24
PROVIDERS: Student in an Organized Health Care Education/Training Program; Surgery; Admitting Provider Internal Medicine Adolescent Medicine; Emergency Provider Emergency Medicine; Visit Provider Internal Medicine Adolescent Medicine
PROC: 0DJ08ZZ Inspection of Upper Intestinal Tract, Via Natural or Artificial Opening Endoscopic (ICD-10-PCS; CPT 43235; principal; 2023-02-24 10:45)
DX: K85.90 Acute pancreatitis without necrosis or infection, unspecified (principal); K81.0 Acute cholecystitis; J44.9 Chronic obstructive pulmonary disease, unspecified; F17.200 Nicotine dependence, unspecified, uncomplicated; K29.70 Gastritis, unspecified, without bleeding; K31.9 Disease of stomach and duodenum, unspecified
CPT/HCPCS: 43239; 36415; 74177; 76705; 80053; 80074; 81001; 82150; 83690; 83735; 85007; 85025; 85610; 85730; 87636; 88305; 88342; 99285; C9803; J0692; J2405; Q9967; U0003; U0005

== ENCOUNTER 2023-03-08 11:51 | Emergency (ER) | payer BC, SELFPAY ==
[2023-03-08 12:00] VITALS: BP 123/87; BP 125/90; PULSE 107; PULSE 108; RESP 20; TEMP 36.7; O2SAT 96; O2SAT 996; BMI 27.1
[2023-03-08 12:00] LABS: Microscopic, Urine URINE MICROSCOPIC (MICROSCOPIC)
[2023-03-08 12:01] LABS: Appearance,Urine SL CLOUDY (Clear); Blood, Urine Negative (Negative); Color,Urine YELLOW (Yellow); Glucose,Urine (UA) Negative (Negative); Ketones,Urine Negative (Negative); Leukocyte Esterase,Urine Negative (Negative); Nitrate,Urine Negative (Negative); Protein,Urine 1+ (Negative); Specific Gravity, Urine >= 1.030 (1.005-1.030)
[2023-03-08 12:07] LABS: Bilirubin,Urine 1+ (Negative)
[2023-03-08 12:16] LABS: RBC,Urine Occasional #/hpf (0-3)
[2023-03-08 12:17] LABS: Bacteria,Urine 1+ /lpf; Hyaline Casts,Urine Occasional #/lpf (0); Mucus,Urine 1+ /lpf
[2023-03-08 12:30] VITALS: BP 139/93; PULSE 94; RESP 18; O2SAT 94
[2023-03-08 12:50] LABS: Basophils # 0.1 K/mm3 (0-0.2); Basophils % 0.4 % (0.1-2.0); Eosinophils # 0.1 K/mm3 (0.0-0.4); Eosinophils % 0.9 % (0.1-12.0); Hematocrit 47.2 % (42.0-52.0); Hemoglobin 15.3 g/dL (14.1-18.0); Lymphocytes # 1.6 K/mm3 (0.7-4.5); Lymphocytes % 13.4 % (10-50); Mean Corpuscular HGB Conc 32.4 g/dL (31.8-35.4); Mean Corpuscular Hemoglobin 27.9 pg (27.0-31.2); Mean Corpuscular Volume 86.1 fl (80-94); Mean Platelet Volume 9.3 fl (7.4-10.4); Monocytes # 0.8 K/mm3 (0.1-1.0); Monocytes % 6.3 % (1.7-9.3); Neutrophils # 9.4 K/mm3 (1.8-7.8); Platelet Count 349 K/mm3 (142-424); Red Blood Count 5.48 M/mm3 (4.60-6.20); Red Cell Distribution Width 13.9 % (11.5-17.5); White Blood Count 11.9 K/mm3 (4.8-10.8)
[2023-03-08 12:55] LABS: Alanine Aminotransferase 65 U/L (12-78); Albumin Level 4.3 g/dl (3.5-5.0); Albumin/Globulin Ratio 1.2 (1.1-1.8); Alkaline Phosphatase 176 U/L (38-126); Aspartate Amino Transferase 47 U/L (17-59); Bilirubin,Total 0.8 mg/dl (0.2-1.3); Blood Urea Nitrogen 16 mg/dl (9-20); Calcium 9.2 mg/dl (8.4-10.2); Carbon Dioxide 28 mmol/L (22.0-30.0); Chloride 95 mmol/L (98-107); Creatinine Clearance Estimated 89 mL/min (50-200); Estimated Glomerular Filt Rate 68 ml/min (>60); GFR (African American) 82 ML/MIN (>60); Globulin 3.7 g/dL (1.3-3.2); Glucose 96 mg/dl (74-100); Lipase 117 U/L (23-300); Sodium 137 mmol/L (136-145)
[2023-03-08 13:00] VITALS: BP 140/88; PULSE 90; O2SAT 100
[2023-03-08 13:27] LABS: Occult Blood,Stool Negative (Negative)
[2023-03-08 13:30] VITALS: BP 136/88; PULSE 90; RESP 20; O2SAT 94
--- NOTE | 2023-03-08 13:48 | PC.NURSE ---
christine perez at
--- NOTE | 2023-03-08 13:53 | HMH.EDGENADL ---
Discharge Plan Disposition Patient Disposition: Home Health Service Condition: Good Chief Complaint: Back Pain/Injury Prescriptions Prescriptions: No Action ondansetron HCl 4 mg tablet 4 mg PO Q8H PRN (Reason: nausea and vomiting) 5 Days Qty: 15 0RF pantoprazole 40 mg tablet,delayed release (DR/EC) 40 mg PO DAILY Referrals Follow up/Referrals: Provider,Referral, MD [Primary Care Provider] - See instructions Clinical Impressions Clinical Impression: Musculoskeletal pain Instructions Patient Instructions: DI for Low Back Pain Discharge ED Provider: Jean Gillis General Adult HPI General Chief complaint: Back Pain/Injury Stated complaint: Lower LT back pain radiating to front Time Seen by Provider: 03/08/23 11:59 Mode of Arrival: Ambulatory Source of Information: Patient Limitations: No Limitations Description of Symptoms (Recalled from ER Triage Doc. by RN): pt to ed c/o left lower back pain that radiates to the left flank x2 days. pt states the pain was sudden onset. pt reports his stool has been darker than normal as well as his urine. pt denies any visible blood. History of Present Illness HPI narrative: 62yo M evaluated for left lower back pain x2 days. Reports pain is worse when he attempts any activity. Pain feels better if he sits still. States his stool has been dark, almost black. Reports mild nausea, worsened by eating. He states he has known gallbladder disease and has seen a surgeon but the surgeon wants his hepatitis C corrected prior to surgery for cholecystectomy. No fever. Related Data Home Medications Medication Instructions Recorded Confirmed pantoprazole 40 mg tablet,delayed 40 mg PO DAILY Acid reflux 03/08/23 03/08/23 release Previous Rx's Medication Instructions Recorded ondansetron HCl 4 mg tablet 4 mg PO Q8H PRN nausea and 02/25/23 vomiting 5 days #15 tabs Allergies Allergy/AdvReac Type Severity Reaction Status Date / Time Penicillins Allergy Intermediate Hives Verified 02/23/23 12:46 [facility] Disclaimer: The information contained in this section may have been updated after the patient was seen, as this information can be updated by other users. Medical History COPD (chronic obstructive pulmonary disease) Surgical History History of appendectomy Social History Smoking Status: Current every day smoker alcohol intake: never substance use type: denies use current occupational status: other Travel in the last 8 weeks: None ROS Obtained: Yes Systems reviewed as appropriate & no additional complaints except as documented Physical Exam General General appearance: alert and in no apparent distress Head Head exam: atraumatic Neck Neck exam: Present full ROM Respiratory Respiratory exam: Present normal lung sounds bilaterally; Absent respiratory distress Cardiovascular Cardiovascular exam: Present regular rate, normal rhythm and normal heart sounds Abdominal Exam Abdominal exam: Present soft and normal bowel sounds; Absent guarding or rebound Extremities Exam Extremities exam: Present normal inspection and full ROM Neurological Exam Neurological exam: Present alert and oriented X3 Skin Skin exam: Present warm Medical Decision Making Medical Records Medical records reviewed: Yes I reviewed the patient's medical records. [place] Inquiry Pt receiving controlled substance: No Vital Signs: 03/08/23 12:00 03/08/23 12:00 03/08/23 12:30 Temperature 98.0 F Temperature Source Oral Pulse Rate 107 H 94 H Pulse Rate [Left Radial] 108 H Respiratory Rate 20 20 18 Blood Pressure 123/87 139/93 H Blood Pressure [Right Arm] 125/90 Blood Pressure Mean 99 105 Blood Pressure Mean [Right Arm] 101 02 Sat by Pulse Oximetry 96 996 H 94 L Oxygen Delivery Method Room Air
[2023-03-08 14:06] VITALS: BP 134/86; PULSE 95; RESP 20; TEMP 36.7; O2SAT 96
== END 2023-03-08 14:07 | disposition home health service (06) ==
PROVIDERS: Emergency Provider Family Medicine
DX: M54.50 Low back pain, unspecified (principal); R10.9 Unspecified abdominal pain; R11.0 Nausea; J44.9 Chronic obstructive pulmonary disease, unspecified; F17.200 Nicotine dependence, unspecified, uncomplicated
CPT/HCPCS: 80053; 81001; 82272; 83690; 85025; 99284; 99285; G0328

== ENCOUNTER 2024-07-27 09:51 | Emergency (ER) | payer BC, SELFPAY ==
[2024-07-27 10:16] VITALS: BP 138/79; PULSE 74; RESP 20; TEMP 36.6; O2SAT 98; BMI 29.2
--- NOTE | 2024-07-27 10:17 | EXP.UTC ---
Discharge Plan Disposition Patient Disposition: Home, Self-Care Condition: Good Prescriptions Prescriptions: New methylprednisolone 4 mg Tablets,Dose Pack 4 mg PO DIRECTED 6 Days Qty: 21 0RF Rx Instructions: Take 1 pack as directed for 6 days No Action ondansetron HCl 4 mg tablet 4 mg PO Q8H PRN (Reason: nausea and vomiting) 5 Days Qty: 15 0RF pantoprazole 40 mg tablet,delayed release (DR/EC) 40 mg PO DAILY Referrals Follow up/Referrals: Luke Kaplan DO [Staff Physician] - See instructions Provider,Referral, [Primary Care Provider] - See instructions Activity Restrictions/Add. Instructions Additional Instructions/Restrictions: Rest the extremity. Take the medication as directed. Follow up with Dr. Kaplan (orthopedics). I put in a referral but you need to call his office and schedule an appointment. Follow up with your regular doctor. GO TO THE ER FOR ANY WORSENING SYMPTOMS Wear the arm sling only for a couple of days for comfort. Make sure you follow up with orthopedics. Clinical Impressions Clinical Impression: Right shoulder pain Stand Alone Forms Stand Alone Forms: Work/School Release Instructions Patient Instructions: Shoulder Tendinopathy, DI for Shoulder Pain Print Language Print Language: [place] Discharge ED Provider: Lucas Pena [facility] HPI General Stated complaint: right shoudler pain, no accident Mode of Arrival: Ambulatory Source of Information: Patient Time Seen by Provider: 07/27/24 10:17 Description of Symptoms (Recalled from Triage Doc. by RN): RIGHT SHOULDER PAIN, THINKS ITS DISLOCATED HEENT Symptoms (Recalled from RN notes): No Resp Symptoms (Recalled from RN notes): No Skin Symptoms (Recalled from RN notes): No MS Symptoms (Recalled from RN notes): Yes Functional Status (Recalled from RN notes): WNL History of Present Illness Provider Complaint: He states that for the past 2 days he has had right shoulder pain that is worse with raising his arm over his head. He denies any injury. He has a history of having recurrent episodes of this shoulder pain in the past. He denies any other injury or complaints. Related Data Home Medications ?Medication ?Instructions ?Recorded ?Confirmed pantoprazole 40 mg tablet,delayed 40 mg PO DAILY Acid reflux 03/08/23 03/08/23 release Previous Rx's ?Medication ?Instructions ?Recorded ondansetron HCl 4 mg tablet 4 mg PO Q8H PRN nausea and 02/25/23 vomiting 5 days #15 tabs methylprednisolone 4 mg tablets in 4 mg PO DIRECTED 6 days #21 tabs 07/27/24 a dose pack Allergies Allergy/AdvReac Type Severity Reaction Status Date / Time Penicillins Allergy Intermediate Hives Verified 02/23/23 12:46 Worker's Comp Is this a Worker's Comp case?: No [facility] Disclaimer: The information contained in this section may have been updated after the patient was seen, as this information can be updated by other users. Medical History COPD (chronic obstructive pulmonary disease) Surgical History History of appendectomy Social History Smoking Status: Current every day smoker alcohol intake: never substance use type: denies use current occupational status: other Travel in the last 8 weeks: None ROS Obtained: Yes All systems reviewed & no additional complaints except as documented Constitutional Constitutional: Denies chills and Denies fever(s) Eyes Eyes: Denies eye discharge ENT Ears, Nose, Mouth, and Throat: Denies dizziness, Denies otalgia and Denies sore throat Cardiovascular Cardiovascular: Denies chest pain Respiratory Respiratory: Denies shortness of breath, Denies chest congestion, Denies cough, Denies stridor and Denies wheezing Gastrointestinal Gastrointestingal: Denies nausea or vomiting Musculoskeletal Musculoskeletal: Reports as per HPI Integumentary/Breasts Skin/Breast: Denies rash Neurologic Neurologic: Denies dizziness and Denies paresthesias Allergic/Immunologic Allergic/Immunologic: Denies wheezing Physical Exam General General appearance: alert and in no apparent distress Head Head exam: atraumatic, normocephalic and normal inspection Eye Eye exam: Present normal appearance, PERRL and EOMI ENT ENT exam: Present normal exam, normal oropharynx, mucous membranes moist, TM's normal bilaterally and normal external ear exam Neck Neck exam: Present normal inspection, full ROM and trachea midline; Absent meningismus or lymphadenopathy Chest Chest inspection: Present normal inspection and symmetric chest wall rise; Absent tenderness Respiratory Respiratory exam: Present normal lung sounds bilaterally; Absent respiratory distress Cardiovascular Cardiovascular exam: Present regular rate and normal rhythm; Absent JVD Abdominal Exam Abdominal exam: Present soft and normal bowel sounds; Absent distention, tenderness or guarding Extremities Exam Extremities exam: Present normal capillary refill; Absent calf tenderness Expanded Upper Extremity Exam Right: Shoulder exam: Present tenderness; Absent full ROM, swelling, abrasion, laceration, ecchymosis, deformity, crepitus, dislocation, erythema or tenderness over AC joint Arm exam: Present normal inspection and full ROM; Absent tenderness or swelling Elbow exam: Present normal inspection and full ROM; Absent tenderness, pain w/ pronation/supination or tenderness over radial head Forearm/Wrist exam: Present normal inspection and full ROM; Absent tenderness Hand exam: Present normal inspection and full ROM; Absent tenderness Neuromotor exam: Normal wrist extension, thumb opposition, thumb IP flexion, thumb adduction and fingers 2-5 abduction Neurosensory exam: Normal radial nerve, ulnar nerve and median nerve Vascular exam: Normal capillary refill, radial pulse and ulnar pulse Back Exam Back exam: Present normal inspection; Absent tenderness Neurological Exam Neurological exam: Present alert and oriented X3 Psychiatric Psychiatric exam: Present normal affect and normal mood Skin Skin exam: Present warm, dry, intact and normal color Lymphatic Lymphatic Findings: no adenopathy Medical Decision Making Medical Records Medical records reviewed: No I reviewed the patient's medical records. Screening: Per USPSTF and CDC recommendations, given the prevalence of disease in our region, it is our hospital?s policy to screen for HIV and viral Hepatitis for all patients aged 18 and over and those with ongoing risk factors. [place] Inquiry Pt receiving controlled substance: No Vital Signs: 07/27/24 10:16 Temperature 97.9 F Temperature Source Oral Pulse Rate [Left Brachial] 74 Respiratory Rate 20 Blood Pressure [Left Arm] 138/79 Blood Pressure Mean [Left Arm] 98 02 Sat by Pulse Oximetry 98 Orders (Tests/Meds): ORDERS Category Date Time Status Shoulder XR right miminum 2 views [XR shoulder RT min Exams 07/27/24 10:16 Ordered 2V] Stat Radiology Data #1: Image(s): Shoulder Image Reviewed: Yes I reviewed the patient's radiology image and Yes I have reviewed radiologist's interpretation Preliminary Findings: No Fracture Seen Accession No. : [id number] Patient Name / ID : INA KNOX / [id number] Exam Date : 07/27/2024 10:08:40 ( Final ) Study Comment : Sex / Age : M / 64Y Creator : MO HERNANDEZ MD Dictator : Manager Software Development : [employer]proof[employer] Mixer : MO HERNANDEZ MD Approver2 : Report Date : 07/27/2024 11:12:27 My Comment : PROCEDURE INFORMATION: Exam: XR Right Shoulder Exam date and time: 07/27/2024 10:08 AM Age: 64 years old Clinical indication: Injury or trauma; Dislocation; Severity not specified; Right; Injury details: Per patient: Shoulder has been dislocated before and this feels like the same thing, but unsure how; Additional info: Pain TECHNIQUE: Imaging protocol: Radiologic exam of the right shoulder. Views: 2 or more views. COMPARISON: CR XR CHEST 2V 04/08/2022 12:46 PM FINDINGS: Bones/joints: There is normal anatomic alignment of the right shoulder. No evidence of a fracture or destructive bone lesion. There is degenerative hypertrophy of the acromioclavicular joint. There is mild lateral downsloping of the acromion putting the patient at risk for rotator cuff impingement. Soft tissues: Normal. 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 Procedures Risk/Benefits of Procedure(s) Were Explained: Yes Orthopedic Splinting/Casting Injury #1: Side: right Upper Extremity Injury Location: shoulder Upper Extremity Immobilizer: sling and applied by nurse/dr carvalho Post Cast/Splinting Neuro Status: intact and no change Post Cast/Splinting Vasc Status: intact and no change
[2024-07-27 11:26] VITALS: BP 138/79; PULSE 74; RESP 20; TEMP 36.6
== END 2024-07-27 11:35 | disposition home or self-care (01) ==
PROVIDERS: Emergency Provider Nurse Practitioner Family
DX: M25.511 Pain in right shoulder (principal)
CPT/HCPCS: 73030; 99213; G0381